=== PATIENT | male | born 1975 ===

== ENCOUNTER 2020-10-28 14:32 | Outpatient (CLI) | payer OTHER | END 2020-10-28 14:34 | disposition home or self-care (01) | LOC: PPH VACUNA 14:32 | DX: Z23 Encounter for immunization (principal) ==

== ENCOUNTER 2020-11-21 10:19 | Outpatient (CLI) | payer OTHER | END 2020-11-21 10:20 | disposition home or self-care (01) | LOC: PPH VACUNA 10:19 | DX: Z23 Encounter for immunization (principal) ==